=== PATIENT | female | born 2000 | race Caucasian/White ===

== ENCOUNTER 2023-05-29 14:36 | Outpatient (CLI) | payer OTHER, SELFPAY | END 2023-05-29 14:37 | disposition home or self-care (01) | PROVIDERS: Visit Provider Family Medicine | DX: Z00.00 Encounter for general adult medical examination without abnormal findings (principal); E66.01 Morbid (severe) obesity due to excess calories; Z13.6 Encounter for screening for cardiovascular disorders | CPT/HCPCS: 80053; 80061 ==

== ENCOUNTER 2024-03-10 14:08 | Outpatient (CLI) | payer OTHER, SELFPAY | END 2024-03-10 14:09 | disposition home or self-care (01) | PROVIDERS: PCP Family Medicine; Visit Provider Family Medicine | DX: R53.83 Other fatigue (principal) | CPT/HCPCS: 82306; 84443 ==

== ENCOUNTER 2025-04-10 15:27 | Outpatient (CLI) | payer OTHER, SELFPAY ==
--- NOTE | 2025-04-10 15:45 | CRLHL7_ITS ---
For Patients: As a result of the Century Cures Act, medical imaging exams and procedure reports are released immediately into your electronic medical record. You may view this report before your referring provider. If you have questions, please contact your health care provider. INDICATION: Menorrhagia COMPARISON: None. TECHNIQUE: 2D plata-scale and color Doppler images were acquired of the pelvis using a transabdominal and transvaginal approach. Transvaginal imaging performed to better visualize the endometrial stripe and ovaries. FINDINGS: Sonographic images demonstrate a normal size and smooth outer contour of the uterus. Uterus measures 8.6 cm in length by 3.1 cm in AP diameter by 4.2 cm in transverse dimension. The myometrium has a normal uniform echotexture. The endometrial lining appears indistinct and measures 7.8 mm in composite thickness. The right ovary measures 3.8 x 2.7 x 3.3 cm in size and the left ovary measures 3.0 x 2.0 x 1.7 cm. The ovaries demonstrate normal arterial and venous blood flow on color Doppler analysis. There are no suspicious fluid collections within the cul-de-sac. Simple right ovarian cyst measures 2.8 x 2.5 x 2.7 cm. IMPRESSION: Endometrial thickness 7.8 millimeters. Mild endocervical fluid noted. Dictated by Maximino Ortega MD @ 04/11/2025 2:33:42 PM (Electronically Signed)
== END 2025-04-10 15:28 | disposition home or self-care (01) ==
LOC: US 15:28
PROVIDERS: PCP Family Medicine; Visit Provider Family Medicine
DX: N92.0 Excessive and frequent menstruation with regular cycle (principal); N83.201 Unspecified ovarian cyst, right side; N85.00 Endometrial hyperplasia, unspecified; Z12.79 Encounter for screening for malignant neoplasm of other genitourinary organs
CPT/HCPCS: 76830; 76856